=== PATIENT | female | born 1985 | race Two or more races ===

== ENCOUNTER 2019-03-12 14:30 | Emergency (ER) | payer OTHER ==
[~2019-03-12] VITALS: Ht 154.9 cm; Wt 49.0 kg
[2019-03-12] MEDS ORDERED: PRENATABS FA T1 EACH (15:19)
== END 2019-03-12 19:39 | disposition home or self-care (01) ==
LOC: ER 14:30
DX: O26.851 Spotting complicating pregnancy, first trimester (principal); Z34.01 Encounter for supervision of normal first pregnancy, first trimester

== ENCOUNTER 2019-10-08 15:34 | Outpatient (CLI) | payer OTHER ==
[~2019-10-08 15:34] MED LIST: PRENATABS FA T1 EACH
== END 2019-10-08 22:10 | disposition home or self-care (01) ==
LOC: NST 15:34
DX: Z34.83 Encounter for supervision of other normal pregnancy, third trimester (principal)

== ENCOUNTER → 2019-10-18 | Outpatient (CLI) | payer OTHER | END | disposition home or self-care (01) | LOC: NST 14:48 | DX: Z34.83 Encounter for supervision of other normal pregnancy, third trimester (principal) ==

== ENCOUNTER 2019-10-21 13:08 | Inpatient (IN) | payer OTHER ==
[~2019-10-21] VITALS: Ht 154.9 cm; Wt 54.0 kg
== END 2019-10-28 15:02 | disposition home or self-care (01) | DRG 768 ==
LOC: OB/GYN → LDR 10-26 14:20 → SURG-SUITE 10-26 19:37
PROVIDERS: ADMIT Obstetrics & Gynecology Maternal & Fetal Medicine
PROC: 10D07Z6 Extraction of Products of Conception, Vacuum, Via Natural or Artificial Opening (ICD-10-PCS; principal; 2019-10-26)
PROC: 0DQR0ZZ Repair Anal Sphincter, Open Approach (ICD-10-PCS; 2019-10-26)
PROC: 0W8NXZZ Division of Female Perineum, External Approach (ICD-10-PCS; 2019-10-26)
PROC: 3E033VJ Introduction of Other Hormone into Peripheral Vein, Percutaneous Approach (ICD-10-PCS; 2019-10-26)
PROC: 4A1HXCZ Monitoring of Products of Conception, Cardiac Rate, External Approach (ICD-10-PCS; 2019-10-26)
DX: O70.23 Third degree perineal laceration during delivery, IIIc (principal); Z37.0 Single live birth; Z3A.40 40 weeks gestation of pregnancy

== ENCOUNTER 2019-10-25 11:17 | Outpatient (CLI) | payer OTHER | END 2019-10-25 12:55 | disposition home or self-care (01) | LOC: NST 11:17 | DX: Z34.83 Encounter for supervision of other normal pregnancy, third trimester (principal) ==

== ENCOUNTER 2021-07-27 13:17 | Outpatient (CLI) | payer OTHER | END 2021-07-27 13:19 | disposition home or self-care (01) | LOC: NUCLEAR 13:17 | PROVIDERS: ATTEND Obstetrics & Gynecology | DX: I82.403 Acute embolism and thrombosis of unspecified deep veins of lower extremity, bilateral (principal); I87.2 Venous insufficiency (chronic) (peripheral) ==

== ENCOUNTER 2021-11-20 15:30 | Inpatient (IN) | payer OTHER ==
[~2021-11-20] VITALS: Ht 154.9 cm; Wt 58.1 kg
== END 2021-11-30 13:59 | disposition home or self-care (01) | DRG 807 ==
LOC: LDR 11-28 10:36 → SURG-SUITE 11-28 10:36 → OB/GYN 12-05 15:30
PROVIDERS: ADMIT Obstetrics & Gynecology; ATTEND Obstetrics & Gynecology
PROC: 10E0XZZ Delivery of Products of Conception, External Approach (ICD-10-PCS; principal; 2021-11-28)
PROC: 0W8NXZZ Division of Female Perineum, External Approach (ICD-10-PCS; 2021-11-28)
PROC: 4A1HXCZ Monitoring of Products of Conception, Cardiac Rate, External Approach (ICD-10-PCS; 2021-11-28)
DX: O80 Encounter for full-term uncomplicated delivery (principal); Z37.0 Single live birth; Z3A.39 39 weeks gestation of pregnancy; Z20.822 Contact with and (suspected) exposure to COVID-19

== ENCOUNTER 2021-11-27 15:59 | Outpatient (CLI) | payer OTHER | END 2021-11-27 16:35 | disposition home or self-care (01) | LOC: NST 15:59 | PROVIDERS: ATTEND Obstetrics & Gynecology Maternal & Fetal Medicine | DX: Z34.90 Encounter for supervision of normal pregnancy, unspecified, unspecified trimester (principal) ==